=== PATIENT | female | born 1935 | race Caucasian/White ===

== ENCOUNTER 2017-02-12 09:41 | Emergency (ER) | payer MEDICARE ==
[~2017-02-12] VITALS: Ht 160 cm; Wt 79.0 kg
[2017-02-12] MEDS ORDERED: ONDANSETRON ODT 4 MG ONE ×2 (10:41→12:33)
[2017-02-12] MEDS ORDERED: HYDROmorphone 1 MG/ML, 1ML ONE (10:41)
[2017-02-12 10:56] LABS: HEMATOCRIT 41.1 % (34.6-47.8); HEMOGLOBIN 13.6 g/dL (11.7-16.4); WHITE BLOOD COUNT 11.9 x10^3/uL (3.4-10)
[2017-02-12] MEDS ORDERED: ONDANSETRON ODT 4 MG PO ONE ×2 (11:00→13:00)
[2017-02-12] MEDS ORDERED: HYDROmorphone 1 MG/ML, 1ML IM ONE (11:00)
[2017-02-12 11:08] LABS: BLOOD UREA NITROGEN 23 mg/dL (7-18)
[2017-02-12] MEDS ORDERED: FAMOTIDINE 20 MG/2 ML ONE (13:12)
[2017-02-12] MEDS ORDERED: PROMETHAZINE 25 MG/ML, 1ML ONE (13:12)
[2017-02-12] MEDS ORDERED: SODIUM CHLORIDE 0.9% 1,000 ML IV ONE (13:16)
[2017-02-12] MEDS ORDERED: SODIUM CHLORIDE 0.9% 1,000ML IVBOLUS ONE (13:30)
[2017-02-12] MEDS ORDERED: MAALOX/HYOSCYAMINE/LIDOCAINE 45 ML BTL PO ONE (13:30)
[2017-02-12] MEDS ORDERED: PROMETHAZINE 25 MG/ML, 1ML IM ONE (13:30)
[2017-02-12] MEDS ORDERED: FAMOTIDINE 20 MG/2 ML IVP ONE ×2 (13:30)
[2017-02-12] MEDS ORDERED: ONDANSETRON 2MG/ML, 2ML IVPush ONE (13:30)
[2017-02-12 14:23] VITALS: BP 170/100
== END 2017-02-12 15:20 | disposition home or self-care (01) ==
LOC: ED 10:19
DX: S39.012A Strain of muscle, fascia and tendon of lower back, initial encounter (principal); S29.012A Strain of muscle and tendon of back wall of thorax, initial encounter; X58.XXXA Exposure to other specified factors, initial encounter; Y93.89 Activity, other specified; Y99.8 Other external cause status; Y92.89 Other specified places as the place of occurrence of the external cause
CPT/HCPCS: 36415; 72146; 80048; 82040; 85025; 93005; 96361; 96372; 96374; 99285; J1170; J2550; J7030; Q0162; S0028

== ENCOUNTER 2018-07-13 17:42 | Inpatient (IN) | payer MEDICARE ==
[~2018-07-13] VITALS: Ht 154.9 cm; Wt 81.2 kg
[~2018-07-13 17:42] MED LIST: ATOR-2 PO; LEVO50TA5 PO; MELO15TA24 PO; TRAM50TA2 PO
--- NOTE | 2018-07-13 18:58 | NUR ---
REPORT RECEIVED FROM LEWIS MEEHAN. ASSUMED CARE OF PT.
[2018-07-13 19:00] LABS: BASOPHILS # (AUTO) 0.02 x10^3/uL (0-0.1); BASOPHILS % (AUTO) 0 % (0-1); EOSINOPHILS # (AUTO) 0.17 x10^3/uL (0-0.4); EOSINOPHILS % (AUTO) 2 % (1-7); LYMPHOCYTES # (AUTO) 1.33 x10^3/uL (1-3.4); LYMPHOCYTES % (AUTO) 12 % (22-44); MD NO; MEAN CORPUSCULAR HEMOGLOBIN 30.7 pg (27.0-34.8); MEAN CORPUSCULAR HGB CONC 33.4 g/dL (32.4-35.8); MEAN CORPUSCULAR VOLUME 91.8 fL (80-100); MEAN PLATELET VOLUME 8.4 fL (7.4-10.4); MONOCYTES % (AUTO) 7 % (2-9); NEUTROPHILS % (AUTO) 80 % (42-75); PLATELET COUNT 230 x10^3/uL (130-400); RED BLOOD COUNT 4.69 x10^6/uL (3.82-5.3)
[2018-07-13] MEDS ORDERED: SODIUM CHLORIDE FLUSH 10ML SYR IVF ONE (19:00)
[2018-07-13 19:12] LABS: ALANINE AMINOTRANSFERASE 26 U/L (12-78); ALBUMIN 3.6 g/dL (3.4-5.0); ANION GAP 6 mmol/L (5-15); CALCIUM 8.4 mg/dL (8.5-10.1); CHLORIDE 108 mmol/L (98-107); CREATININE 1.12 mg/dL (0.55-1.02)
[2018-07-13 19:13] LABS: ALKALINE PHOSPHATASE 66 U/L (45-117); BILIRUBIN,TOTAL 1.1 mg/dL (0.2-1.0)
[2018-07-13] MEDS ORDERED: OMNIPAQUE 350 MG/ML, 100ML BOTTLE ONE (19:37)
--- NOTE | 2018-07-13 19:45 | NUR ---
PT UP TO BEDSIDE COMMODE WITH SBA. PT AO X 3, WHICH IS BASELINE PER DAUGHTER. PER DAUGHTER, PT'S MENTATION COMES AND GOES. SKIN PWD. RESP EVEN AND EQAUL. CALL LIGHT WITHIN REACH. WILL CONT TO MONITOR PT.
--- NOTE | 2018-07-13 20:30 | NUR ---
PT UP TO BEDSIDE COMMODE WITH STANDBY ASSIST. URINE SAMPLE OBTAINED AND SENT TO LAB. PT AWARE THAT WE ARE WAITING FOR IMAGING RESULTS. DAUGHTER AT BEDSIDE. CALL LIGHT WITHIN REACH. WILL COTN TO MONITOR PT.
[2018-07-13] MEDS ORDERED: KETOROLAC 30 MG/1 ML ONE (20:41)
[2018-07-13] MEDS ORDERED: KETOROLAC 30 MG/1 ML IVPush ONE (21:00)
[2018-07-13 21:05] LABS: MICROSCOPIC NOT IND
[2018-07-13 21:14] LABS: CULTURE INDICATED? NO
[2018-07-13] MEDS: HEPARIN 5,000 UNITS/ML, 1ML SQ SCH (22:30)
[2018-07-13] MEDS ORDERED: DIPHENHYDRAMINE 25 MG CAPSULE PO PRN (22:30)
[2018-07-13] MEDS ORDERED: KETOROLAC 30 MG/1 ML IM PRN (22:30)
[2018-07-13] MEDS ORDERED: LABETALOL 5MG/ML, 20ML IVPush PRN (22:30)
[2018-07-13] MEDS ORDERED: ACETAMINOPHEN 325 MG TABLET PO PRN (22:30)
[2018-07-13] MEDS ORDERED: ONDANSETRON ODT 4 MG PO PRN (22:30)
[2018-07-13 22:43] VITALS: BP 185/83
[2018-07-13 23:27] VITALS: BP 128/72
[2018-07-14] MEDS: ATORVASTATIN 80 MG TABLET PO SCH ×2 (00:11→21:12)
[2018-07-14] MEDS: LIDODERM 5% PATCH TD PRN (00:12)
[2018-07-14] MEDS ORDERED: SENN-129 BC (01:09)
[2018-07-14] MEDS ORDERED: POLY17PO5 PO (01:09)
[2018-07-14 01:15] VITALS: BP 117/66
[2018-07-14 04:30] LABS: BASOPHILS # (AUTO) 0.03 x10^3/uL (0-0.1); BASOPHILS % (AUTO) 0 % (0-1); EOSINOPHILS # (AUTO) 0.29 x10^3/uL (0-0.4); EOSINOPHILS % (AUTO) 3 % (1-7); LYMPHOCYTES # (AUTO) 1.73 x10^3/uL (1-3.4); LYMPHOCYTES % (AUTO) 18 % (22-44); MD NO; MEAN CORPUSCULAR HEMOGLOBIN 30.7 pg (27.0-34.8); MEAN CORPUSCULAR HGB CONC 33.5 g/dL (32.4-35.8); MEAN CORPUSCULAR VOLUME 91.7 fL (80-100); MEAN PLATELET VOLUME 8.4 fL (7.4-10.4); MONOCYTES # (AUTO) 0.91 x10^3/uL (0.2-0.8); MONOCYTES % (AUTO) 10 % (2-9); NEUTROPHILS # (AUTO) 6.57 x10^3/uL (1.8-6.8); NEUTROPHILS % (AUTO) 69 % (42-75); PLATELET COUNT 214 x10^3/uL (130-400); RED BLOOD COUNT 4.37 x10^6/uL (3.82-5.3); RED CELL DISTRIBUTION WIDTH 15.8 % (9.6-15.2)
[2018-07-14 04:47] LABS: CHLORIDE 108 mmol/L (98-107)
[2018-07-14 05:05] LABS: ANION GAP 5 mmol/L (5-15); CREATININE 1.02 mg/dL (0.55-1.02); FREE T4 (FREE THYROXINE) 1.71 ng/dL (0.76-1.46)
[2018-07-14 07:09] VITALS: BP 155/86
[2018-07-14] MEDS: HEPARIN 5,000 UNITS/ML, 1ML SQ SCH ×3 (08:00→23:18)
[2018-07-14] MEDS: MELOXICAM 15 MG TABLET PO SCH (08:27)
[2018-07-14] MEDS: LEVOTHYROXINE 50 MCG TABLET PO SCH (08:27)
[2018-07-14 12:15] VITALS: BP 178/92
[2018-07-14] MEDS: METHOCARBAMOL 500 MG TABLET PO PRN (12:36)
[2018-07-14] MEDS: LORazepam 2 MG/ML, 1ML IVPush PRN ×2 (14:45→15:25)
[2018-07-14] MEDS ORDERED: hydrALAzine 20 MG/ML, 1ML IV PRN (15:00)
[2018-07-14 19:26] VITALS: BP 162/87
[2018-07-15 01:27] VITALS: BP 154/82
[2018-07-15] MEDS: METHOCARBAMOL 500 MG TABLET PO PRN (02:18)
[2018-07-15 06:45] VITALS: BP 168/82
[2018-07-15] MEDS: HEPARIN 5,000 UNITS/ML, 1ML SQ SCH ×3 (08:00→15:57)
[2018-07-15] MEDS: LEVOTHYROXINE 50 MCG TABLET PO SCH (08:16)
[2018-07-15] MEDS: MELOXICAM 15 MG TABLET PO SCH (08:16)
[2018-07-15 13:20] VITALS: BP 157/85
[2018-07-15] MEDS ORDERED: KETOROLAC 30 MG/1 ML IM ONE (14:00)
[2018-07-15] MEDS: LISINOPRIL 5 MG TABLET PO SCH (14:17)
[2018-07-15] MEDS: GABAPENTIN 100 MG CAPSULE PO SCH ×2 (15:58→19:54)
[2018-07-15] MEDS: METHOCARBAMOL 500 MG TABLET PO SCH ×2 (15:58→19:54)
[2018-07-15] MEDS: ACETAMINOPHEN 325 MG TABLET PO SCH ×2 (18:18→22:30)
[2018-07-15 19:48] VITALS: BP 150/73
[2018-07-15] MEDS: ATORVASTATIN 80 MG TABLET PO SCH (19:54)
[2018-07-16 01:31] VITALS: BP 150/69
[2018-07-16] MEDS: ACETAMINOPHEN 325 MG TABLET PO SCH ×6 (02:30→22:05)
[2018-07-16] MEDS: METHOCARBAMOL 500 MG TABLET PO SCH ×4 (06:05→20:52)
[2018-07-16] MEDS: GABAPENTIN 100 MG CAPSULE PO SCH ×4 (06:05→20:52)
[2018-07-16 07:40] VITALS: BP 155/72
[2018-07-16] MEDS: HEPARIN 5,000 UNITS/ML, 1ML SQ SCH ×4 (07:48→23:21)
[2018-07-16] MEDS: LEVOTHYROXINE 50 MCG TABLET PO SCH (08:00)
[2018-07-16] MEDS: LISINOPRIL 5 MG TABLET PO SCH (08:00)
[2018-07-16] MEDS: MELOXICAM 15 MG TABLET PO SCH (08:00)
[2018-07-16 13:29] VITALS: BP 107/59
[2018-07-16] MEDS: LIDODERM 5% PATCH TD PRN (13:41)
[2018-07-16 19:33] VITALS: BP 139/72
[2018-07-16] MEDS: ATORVASTATIN 80 MG TABLET PO SCH (20:52)
[2018-07-17 01:47] VITALS: BP 138/72
[2018-07-17] MEDS: ACETAMINOPHEN 325 MG TABLET PO SCH ×6 (02:30→21:18)
[2018-07-17] MEDS: GABAPENTIN 100 MG CAPSULE PO SCH ×4 (05:41→21:23)
[2018-07-17] MEDS: METHOCARBAMOL 500 MG TABLET PO SCH ×4 (05:41→21:19)
[2018-07-17 07:40] VITALS: BP 156/67
[2018-07-17] MEDS: LISINOPRIL 5 MG TABLET PO SCH (08:05)
[2018-07-17] MEDS: LEVOTHYROXINE 50 MCG TABLET PO SCH (08:05)
[2018-07-17] MEDS: HEPARIN 5,000 UNITS/ML, 1ML SQ SCH ×3 (08:06→23:56)
[2018-07-17] MEDS: MELOXICAM 15 MG TABLET PO SCH (08:06)
[2018-07-17] MEDS ORDERED: LIDOCAINE 1%, 10ML INFIL STA (10:23)
[2018-07-17 14:00] VITALS: BP 138/72
[2018-07-17 18:53] VITALS: BP 150/75
[2018-07-17] MEDS: ATORVASTATIN 80 MG TABLET PO SCH (21:19)
[2018-07-18 00:29] VITALS: BP 191/81
[2018-07-18] MEDS: LABETALOL 5 MG/ML SYRINGE IVPush PRN (01:35)
[2018-07-18] MEDS: ACETAMINOPHEN 325 MG TABLET PO SCH ×6 (02:30→22:01)
[2018-07-18] MEDS: METHOCARBAMOL 500 MG TABLET PO SCH ×4 (06:47→22:01)
[2018-07-18] MEDS: HEPARIN 5,000 UNITS/ML, 1ML SQ SCH ×2 (06:48→18:04)
[2018-07-18] MEDS: GABAPENTIN 100 MG CAPSULE PO SCH ×4 (06:48→22:01)
[2018-07-18 07:06] VITALS: BP 135/74
[2018-07-18] MEDS ORDERED: TRIAMCINOLONE ACETONIDE 40 MG/ML, 1ML MC ONE (07:30)
[2018-07-18] MEDS ORDERED: LIDOCAINE 1%, 10ML INFIL STA (08:05)
[2018-07-18] MEDS: MELOXICAM 15 MG TABLET PO SCH (09:00)
[2018-07-18] MEDS: LEVOTHYROXINE 50 MCG TABLET PO SCH (09:56)
[2018-07-18] MEDS: LISINOPRIL 5 MG TABLET PO SCH (09:56)
[2018-07-18 12:42] VITALS: BP 183/79
[2018-07-18 18:31] VITALS: BP_SYST 135; BP_SYST 152; BP_DIAS 71; BP_DIAS 80
[2018-07-18] MEDS: ATORVASTATIN 80 MG TABLET PO SCH (22:01)
[2018-07-19 01:13] VITALS: BP 147/77
[2018-07-19] MEDS: HEPARIN 5,000 UNITS/ML, 1ML SQ SCH ×4 (02:24→19:47)
[2018-07-19] MEDS: ACETAMINOPHEN 325 MG TABLET PO SCH ×6 (02:24→19:46)
[2018-07-19] MEDS: LEVOTHYROXINE 50 MCG TABLET PO SCH (05:31)
[2018-07-19] MEDS: METHOCARBAMOL 500 MG TABLET PO SCH ×4 (05:31→19:47)
[2018-07-19] MEDS: GABAPENTIN 100 MG CAPSULE PO SCH ×4 (05:31→19:47)
[2018-07-19 07:11] VITALS: BP 144/69
[2018-07-19] MEDS: LISINOPRIL 5 MG TABLET PO SCH (09:00)
[2018-07-19] MEDS: MELOXICAM 15 MG TABLET PO SCH (10:59)
[2018-07-19] MEDS ORDERED: ACET325T14 PO (11:43)
[2018-07-19 14:00] VITALS: BP 125/71
[2018-07-19 18:43] VITALS: BP 154/72
[2018-07-19] MEDS: ATORVASTATIN 80 MG TABLET PO SCH (19:47)
[2018-07-20 00:22] VITALS: BP 151/74
[2018-07-20] MEDS: ACETAMINOPHEN 325 MG TABLET PO SCH ×6 (02:30→21:57)
[2018-07-20] MEDS: METHOCARBAMOL 500 MG TABLET PO SCH ×4 (06:10→21:04)
[2018-07-20] MEDS: GABAPENTIN 100 MG CAPSULE PO SCH ×4 (06:10→21:04)
[2018-07-20] MEDS: LEVOTHYROXINE 50 MCG TABLET PO SCH (06:10)
[2018-07-20 07:25] VITALS: BP 136/81
[2018-07-20] MEDS: LISINOPRIL 5 MG TABLET PO SCH (08:50)
[2018-07-20] MEDS: MELOXICAM 15 MG TABLET PO SCH (08:51)
[2018-07-20] MEDS: HEPARIN 5,000 UNITS/ML, 1ML SQ SCH ×2 (10:00→18:00)
[2018-07-20 14:00] VITALS: BP 145/73
[2018-07-20] MEDS: POLYETHYLENE GLYCOL 17 GM PACKET PO PRN (16:51)
[2018-07-20] MEDS ORDERED: BISACODYL 10 MG SUPP PR PRN (18:00)
[2018-07-20 18:50] VITALS: BP 156/64
[2018-07-20] MEDS: ATORVASTATIN 80 MG TABLET PO SCH (21:04)
[2018-07-20] MEDS: LIDODERM 5% PATCH TD PRN (23:37)
[2018-07-21 00:10] VITALS: BP 189/68
[2018-07-21] MEDS: HEPARIN 5,000 UNITS/ML, 1ML SQ SCH ×2 (01:48→11:16)
[2018-07-21 02:29] VITALS: BP 183/73
[2018-07-21] MEDS: LABETALOL 5 MG/ML SYRINGE IVPush PRN (02:59)
[2018-07-21] MEDS: ACETAMINOPHEN 325 MG TABLET PO SCH ×3 (03:02→11:16)
[2018-07-21 03:45] VITALS: BP 166/71
[2018-07-21 05:50] LABS: BASOPHILS # (AUTO) 0.02 x10^3/uL (0-0.1); BASOPHILS % (AUTO) 0 % (0-1); EOSINOPHILS # (AUTO) 0.01 x10^3/uL (0-0.4); EOSINOPHILS % (AUTO) 0 % (1-7); LYMPHOCYTES # (AUTO) 1.65 x10^3/uL (1-3.4); LYMPHOCYTES % (AUTO) 20 % (22-44); MD NO; MEAN CORPUSCULAR HEMOGLOBIN 30.1 pg (27.0-34.8); MEAN CORPUSCULAR HGB CONC 32.9 g/dL (32.4-35.8); MEAN CORPUSCULAR VOLUME 91.6 fL (80-100); MEAN PLATELET VOLUME 8.6 fL (7.4-10.4); MONOCYTES # (AUTO) 0.37 x10^3/uL (0.2-0.8); MONOCYTES % (AUTO) 5 % (2-9); NEUTROPHILS % (AUTO) 75 % (42-75); PLATELET COUNT 251 x10^3/uL (130-400); RED BLOOD COUNT 4.58 x10^6/uL (3.82-5.3); RED CELL DISTRIBUTION WIDTH 15.8 % (9.6-15.2)
[2018-07-21 05:58] LABS: ANION GAP 5 mmol/L (5-15); CALCIUM 8.4 mg/dL (8.5-10.1); CHLORIDE 114 mmol/L (98-107); CREATININE 0.95 mg/dL (0.55-1.02)
[2018-07-21 06:31] VITALS: BP 179/73
[2018-07-21] MEDS: METHOCARBAMOL 500 MG TABLET PO SCH ×2 (06:36→11:16)
[2018-07-21] MEDS: GABAPENTIN 100 MG CAPSULE PO SCH ×2 (06:37→11:16)
[2018-07-21] MEDS: LEVOTHYROXINE 50 MCG TABLET PO SCH (06:37)
[2018-07-21 07:26] VITALS: BP 152/73
[2018-07-21] MEDS: MELOXICAM 15 MG TABLET PO SCH (08:25)
[2018-07-21] MEDS: LISINOPRIL 5 MG TABLET PO SCH (08:26)
[2018-07-21] MEDS: POLYETHYLENE GLYCOL 17 GM PACKET PO PRN (08:31)
[2018-07-21 12:46] VITALS: BP 148/81
[2018-07-22] MEDS ORDERED: LISINOPRIL 20 MG TABLET PO SCH (09:00)
== END 2018-07-21 14:33 | DRG 552 ==
LOC: ED 19:11 → EDIP 20:48 → 3NW 21:27 → 3NE 07-14 17:04
PROVIDERS: ADMIT Hospitalist; ATTEND Hospitalist
PROC: 3E0233Z Introduction of Anti-inflammatory into Muscle, Percutaneous Approach (ICD-10-PCS; principal; 2018-07-17)
DX: M54.5 Low back pain (principal); R32 Unspecified urinary incontinence; Z88.8 Allergy status to other drugs, medicaments and biological substances; E03.9 Hypothyroidism, unspecified; E78.5 Hyperlipidemia, unspecified; F03.90 Unspecified dementia, unspecified severity, without behavioral disturbance, psychotic disturbance, mood disturbance, and anxiety; G89.29 Other chronic pain; M19.90 Unspecified osteoarthritis, unspecified site; I10 Essential (primary) hypertension; K59.09 Other constipation; M70.61 Trochanteric bursitis, right hip; M70.71 Other bursitis of hip, right hip; W18.39XA Other fall on same level, initial encounter; Y93.89 Activity, other specified; Y92.89 Other specified places as the place of occurrence of the external cause; Y99.8 Other external cause status; Z86.73 Personal history of transient ischemic attack (TIA), and cerebral infarction without residual deficits; Z90.710 Acquired absence of both cervix and uterus
CPT/HCPCS: 36415; 72148; 74018; 74177; 80048; 80053; 81003; 83690; 84439; 84443; 85025; 99285; G0378; J1644; J1885; J3301; J3490; Q9967; J0360; J2060

== ENCOUNTER 2018-10-02 12:24 | Inpatient (IN) | payer MEDICARE ==
[~2018-10-02] VITALS: Ht 157.5 cm; Wt 75.1 kg
[~2018-10-02 12:24] MED LIST changes: +ACET325T14 PO; +POLY17PO5 PO; +SENN-129 BC
[2018-10-02] MEDS ORDERED: AMLO10TA8 PO (12:47)
[2018-10-02] MEDS ORDERED: DOCU100C33 PO (12:48)
[2018-10-02] MEDS ORDERED: METH500T7 PO (12:51)
[2018-10-02] MEDS ORDERED: ESTR42.53 VG (12:52)
[2018-10-02] MEDS ORDERED: CLON0.1T22 PO (12:53)
--- NOTE | 2018-10-02 13:07 | NUR ---
RECEIVED REPORT FROM LEWIS BALDWIN. PT RESTING ON [facility]. NADN. VALDESS. FAMILY AT BEDSIDE.
[2018-10-02 13:22] LABS: BASOPHILS # (AUTO) 0.03 x10^3/uL (0-0.1); BASOPHILS % (AUTO) 0 % (0-1); EOSINOPHILS # (AUTO) 0.17 x10^3/uL (0-0.4); EOSINOPHILS % (AUTO) 2 % (1-7); LYMPHOCYTES # (AUTO) 1.71 x10^3/uL (1-3.4); LYMPHOCYTES % (AUTO) 18 % (22-44); MD NO; MEAN CORPUSCULAR HEMOGLOBIN 31.1 pg (27.0-34.8); MEAN CORPUSCULAR VOLUME 94.4 fL (80-100); MEAN PLATELET VOLUME 7.7 fL (7.4-10.4); MONOCYTES # (AUTO) 0.54 x10^3/uL (0.2-0.8); MONOCYTES % (AUTO) 6 % (2-9); NEUTROPHILS # (AUTO) 7.13 x10^3/uL (1.8-6.8); NEUTROPHILS % (AUTO) 75 % (42-75); PLATELET COUNT 307 x10^3/uL (130-400); RED BLOOD COUNT 4.16 x10^6/uL (3.82-5.3); RED CELL DISTRIBUTION WIDTH 16.7 % (9.6-15.2)
[2018-10-02 13:32] LABS: ALANINE AMINOTRANSFERASE 17 U/L (12-78); ALBUMIN 3.3 g/dL (3.4-5.0); ANION GAP 7 mmol/L (5-15); CALCIUM 8.7 mg/dL (8.5-10.1); CHLORIDE 108 mmol/L (98-107); CREATININE 0.86 mg/dL (0.55-1.02)
[2018-10-02 13:35] LABS: ALKALINE PHOSPHATASE 76 U/L (45-117); BILIRUBIN,TOTAL 0.8 mg/dL (0.2-1.0); TOTAL PROTEIN 6.6 g/dL (6.4-8.2)
[2018-10-02 13:59] LABS: MICROSCOPIC NOT IND
[2018-10-02] MEDS ORDERED: HYDROcodone/APAP 5/325 TABLET PO ONE (14:00)
[2018-10-02] MEDS ORDERED: ONDANSETRON ODT 4 MG PO ONE (14:00)
[2018-10-02] MEDS ORDERED: ONDANSETRON ODT 4 MG ONE (14:05)
[2018-10-02] MEDS ORDERED: HYDROcodone/APAP 5/325 TABLET ONE (14:06)
[2018-10-02 14:09] LABS: CULTURE INDICATED? NO
--- NOTE | 2018-10-02 14:13 | NUR ---
PT RESTING ON CHARMAINE. BETH. VSS. MEDICATED PER JUL. PER PT AND ERP WILL ATTEMPT PO ZOFRAN AND PO NORCO AND SEE IF PT IS ABLE TO VENKAT PO PAIN MEDS.
--- NOTE | 2018-10-02 15:03 | NUR ---
PT VERBALIZES PAIN 02/19. NOW PT STATES PAIN 07/20. ERP NOTIFIED.
--- NOTE | 2018-10-02 15:08 | NUR ---
PT SLEEPING AND O2 SATS NOTED TO DROP TO 73%. PT PLACED ON 2L NC NOW SATING 96%. ERP NOTIFIED.
--- NOTE | 2018-10-02 15:54 | NUR ---
PT RESTING ON CHARMAINE. VSS. AWARE OF POC FOR CXR THEN ADMIT.
--- NOTE | 2018-10-02 16:47 | NUR ---
PT RESTING ON CHARMAINE. NADN. PAREKH. [facility] AT BEDSIDE.
[2018-10-02] MEDS ORDERED: GABAPENTIN 100 MG CAPSULE PO PRN (17:00)
[2018-10-02] MEDS ORDERED: hydrALAzine 20 MG/ML, 1ML IVPush PRN (17:00)
[2018-10-02] MEDS ORDERED: ONDANSETRON ODT 4 MG PO PRN (17:00)
[2018-10-02] MEDS ORDERED: METHOCARBAMOL 750 MG in DEXTROSE 5% 100 ML IV SCH (17:00)
[2018-10-02] MEDS ORDERED: ENOXAPARIN 40 MG/0.4 ML SQ SCH (17:00)
[2018-10-02] MEDS ORDERED: BISACODYL 10 MG SUPP PR PRN (17:00)
[2018-10-02] MEDS ORDERED: POLYETHYLENE GLYCOL 17 GM PACKET PO PRN (17:00)
--- NOTE | 2018-10-02 17:29 | NUR ---
REPORT GIVEN TO ROXY, RECEIVING RN. ALL QUESTIONS ANSWERED. AWAITING PT TRANSPORT.
[2018-10-02] MEDS ORDERED: POTASSIUM CHLORIDE 20 MEQ TAB.ER.PRT PO ONE (17:30)
--- NOTE | 2018-10-02 17:34 | NUR ---
PT RESTING ON GURNEY. NADN. PAREKH.
[2018-10-02] MEDS ORDERED: METHOCARBAMOL 750 MG in DEXTROSE 5% 100 ML IV ONE (18:00)
[2018-10-02] MEDS: ACETAMINOPHEN 325 MG TABLET PO SCH ×2 (18:01→22:00)
[2018-10-02] MEDS ORDERED: ATORVASTATIN 40 MG TABLET PO SCH (21:00)
[2018-10-02] MEDS ORDERED: ESTROGENS CONJUGATED VAG CRM 0.625MG/1G, 30GM VG SCH (21:00)
[2018-10-02 21:59] VITALS: BP 135/70
[2018-10-03 01:41] VITALS: BP 154/70
[2018-10-03] MEDS: ACETAMINOPHEN 325 MG TABLET PO SCH ×4 (02:30→14:17)
[2018-10-03] MEDS: METHOCARBAMOL 500 MG TABLET PO SCH ×3 (02:30→11:02)
[2018-10-03 05:33] LABS: ANION GAP 6 mmol/L (5-15); CALCIUM 8.4 mg/dL (8.5-10.1); CHLORIDE 112 mmol/L (98-107)
[2018-10-03 05:34] LABS: CREATININE 0.95 mg/dL (0.55-1.02)
[2018-10-03 08:25] VITALS: BP 155/77
[2018-10-03] MEDS ORDERED: LEVOTHYROXINE 50 MCG TABLET PO SCH (09:00)
[2018-10-03] MEDS ORDERED: MELOXICAM 15 MG TABLET PO SCH (09:00)
[2018-10-03] MEDS ORDERED: SENNA/DOCUSATE TABLET PO SCH (09:00)
[2018-10-03 13:53] VITALS: BP 120/48
== END 2018-10-03 15:25 | disposition home or self-care (01) | DRG 557 ==
LOC: ED 15:39 → EDIP 16:55 → 4NOR 17:49 → DCLOUNGE 10-03 15:20
PROVIDERS: ADMIT Internal Medicine; ATTEND Internal Medicine
DX: M70.61 Trochanteric bursitis, right hip (principal); J96.01 Acute respiratory failure with hypoxia; E03.9 Hypothyroidism, unspecified; E78.5 Hyperlipidemia, unspecified; E87.6 Hypokalemia; F03.90 Unspecified dementia, unspecified severity, without behavioral disturbance, psychotic disturbance, mood disturbance, and anxiety; G89.29 Other chronic pain; I10 Essential (primary) hypertension; K59.09 Other constipation; M19.90 Unspecified osteoarthritis, unspecified site; M54.16 Radiculopathy, lumbar region; M70.71 Other bursitis of hip, right hip; R32 Unspecified urinary incontinence; Z86.73 Personal history of transient ischemic attack (TIA), and cerebral infarction without residual deficits; Z88.8 Allergy status to other drugs, medicaments and biological substances; M79.18 Myalgia, other site
CPT/HCPCS: 36415; 71045; 80048; 80053; 81003; 85025; 99285; G0378; J1650; Q0162; J2800